=== PATIENT | male | born 1965 ===

== ENCOUNTER 2017-03-05 15:55 | Emergency (ER) | payer BC ==
[2017-03-05 16:07] VITALS: BP 142/78
--- NOTE | 2017-03-05 17:10 | UC ---
General HPI - HPI Summary HPI Summary: TICK EMBEDDED IN RIGHT LOWER ABDOMEN SINCE THIS MORNING. WAS IN [place] YESTERDAY. NO RASHES. NO FEVER. 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 Tonsillectomy, 1981. Umbilical Hernia Repair, 2007 - Family History Known Family History: Negative: Blood Disorder - Social History Occupation: Employed Full-time Lives: With Family Alcohol Use: None Substance Use Type: None Smoking Status (MU): Former Smoker Type: Cigarettes Amount Used/How Often: 1.5PPD Length of Time of Smoking/Using Tobacco: 30+ years When Did the Patient Quit Smoking/Using Tobacco: 2014 Review of Systems Constitutional: Negative Skin: Other - TICK IN RIGHT LOWER ABDOMEN Eyes: Negative ENT: Negative Respiratory: Negative Cardiovascular: Negative Gastrointestinal: Negative Genitourinary: Negative Motor: Negative Neurovascular: Negative Musculoskeletal: Negative Neurological: Negative Psychological: Negative All Other Systems Reviewed And Are Negative: Yes Physical Exam Triage Information Reviewed: Yes Appearance: Well-Appearing, No Pain Distress, Well-Nourished Vital Signs: Initial Vital Signs Temp 97.8 F 03/05/17 16:01 Pulse 70 03/05/17 16:01 Resp 16 03/05/17 16:01 BP 142/78 03/05/17 16:01 Pulse Ox 96 03/05/17 16:01 Vital Signs Reviewed: Yes Eye Exam: Normal ENT Exam: Normal ENT: Positive: Normal ENT inspection, Hearing grossly normal, Pharynx normal, TMs normal Dental Exam: Normal Neck exam: Normal Neck: Positive: Supple, Nontender Respiratory Exam: Normal Respiratory: Positive: Chest non-tender, Lungs clear, Normal breath sounds, No respiratory distress, No accessory muscle use Cardiovascular Exam: Normal Cardiovascular: Positive: RRR, No Murmur, Pulses Normal Abdomen Description: Positive: Nontender, No Organomegaly, Soft, Other: - TICK EMBEDDED IN RIGHT LOWER ABDOMEN Bowel Sounds: Positive: Present Musculoskeletal Exam: Normal Neurological Exam: Normal Psychological Exam: Normal Skin: Positive: Other - TICK EMBEDDED IN RIGHT LOWER ABDOMEN Procedures - Procedure Summary Procedure Summary: TICK REMOVED FROM RIGHT LOWER ABDOMEN USING TICK TWISTER Course/Dx - Differential Dx - Multi-Symptom Differential Diagnoses: Urinary Tract Infection Provider Diagnoses: TICK REMOVAL. TICK BITE PROPHYLAXIS Discharge - Discharge Plan Condition: Stable Disposition: HOME Prescriptions: DOXYcycline CAP(*) [DOXYcycline 100MG CAP(*)] 100 mg PO ONCE #2 cap Patient Education Materials: Tick Bite (ED) Referrals: [facility]ERR[facility] [Outside] No Primary Care Phys,NOPCP [Primary Care Provider] -
== END 2017-03-05 16:32 | disposition home or self-care (01) ==
LOC: UCCORT 15:55
DX: S30.861A Insect bite (nonvenomous) of abdominal wall, initial encounter (principal); W57.XXXA Bitten or stung by nonvenomous insect and other nonvenomous arthropods, initial encounter; Y93.9 Activity, unspecified; Y92.9 Unspecified place or not applicable; Z87.891 Personal history of nicotine dependence
CPT/HCPCS: 99212; G0463

== ENCOUNTER 2018-04-15 15:45 | Emergency (ER) | payer BC ==
[2018-04-15 15:57] VITALS: BP 142/90
--- NOTE | 2018-04-15 16:10 | UC ---
Dental HPI - HPI Summary HPI Summary: Patient is complaining of increasing pain to his right upper back gum next to a bad tooth. He notes the area has become swollen and his glands are swollen and tender. Began about a week ago and is getting worse. Patient states he is able to control his pain with [id number] Motrin. Patient states this happened before and he required an antibiotic. - History of Current Complaint Hx Obtained From: Patient Onset/Duration: Gradual Onset Pain Intensity: 4 Aggravating Factor(s): Nothing Alleviating Factor(s): Nothing <Taty Houston - Last Filed: 04/15/18 16:21> <Wilber Haider - Last Filed: 04/15/18 20:02> - History of Current Complaint Chief Complaint: UCDentalProblem Stated Complaint: DENTAL COMPLAINT Time Seen by Provider: 04/15/18 16:01 - Allergies/Home Medications Allergies/Adverse Reactions: Allergies Allergy/AdvReac Type Severity Reaction Status Date / Time No Known Allergies Allergy Verified 04/15/18 15:55 Home Medications: Home Medications Ibuprofen TAB* [Motrin TAB* 600 MG] 600 mg PO Q6H PRN 04/15/18 [History Confirmed 04/15/18] PMH/Surg Hx/FS Hx/Imm Hx Previously Healthy: Yes - Surgical History Surgical History: Yes Surgery Procedure, Year, and Place: BIlateral Hernia Repair, 1965. Tonsillectomy, 1981. Umbilical Hernia Repair, 2007 - Family History Known Family History: Negative: Blood Disorder - Social History Occupation: Employed Full-time Alcohol Use: Rare Substance Use Type: None Smoking Status (MU): Former Smoker Type: Cigarettes Amount Used/How Often: 1.5PPD Length of Time of Smoking/Using Tobacco: 30+ years When Did the Patient Quit Smoking/Using Tobacco: 2014 - Immunization History Vaccination Up to Date: Yes <Taty Houston - Last Filed: 04/15/18 16:21> Review of Systems Constitutional: Negative Skin: Negative Eyes: Negative ENT: Dental Pain Respiratory: Negative Cardiovascular: Negative Gastrointestinal: Negative Genitourinary: Negative Motor: Negative Neurovascular: Negative Musculoskeletal: Negative Neurological: Negative Psychological: Negative Is Patient Immunocompromised?: No All Other Systems Reviewed And Are Negative: Yes <Taty Houston - Last Filed: 04/15/18 16:21> Physical Exam Triage Information Reviewed: Yes Appearance: Well-Appearing Vital Signs: Initial Vital Signs Temp 98.1 F 04/15/18 15:53 Pulse 69 04/15/18 15:53 Resp 16 04/15/18 15:53 BP 142/90 04/15/18 15:53 Pulse Ox 98 04/15/18 15:53 Eyes: Positive: Conjunctiva Clear ENT: Positive: Pharynx normal, TMs normal. Negative: Nasal congestion, Nasal drainage Dental: Positive: Other: - Right upper posterior molar appears to have some decay. The tooth is not tender. The surrounding gum is mildly swollen and tender but not fluctuant. Neck: Positive: Supple, No Lymphadenopathy, Tenderness @ - Right submandibular and upper anterior cervical chain lymph node tenderness I cannot appreciate any enlargement Respiratory: Positive: Lungs clear, Normal breath sounds Cardiovascular: Positive: RRR, No Murmur Abdomen Description: Positive: Nontender, No Organomegaly, Soft Bowel Sounds: Positive: Present Musculoskeletal: Positive: ROM Intact Neurological: Positive: Alert Psychological: Positive: Age Appropriate Behavior Skin Exam: Normal <Taty Houston - Last Filed: 04/15/18 16:21> Vital Signs: Initial Vital Signs Temp 98.1 F 04/15/18 15:53 Pulse 69 04/15/18 15:53 Resp 16 04/15/18 15:53 BP 142/90 04/15/18 15:53 Pulse Ox 98 04/15/18 15:53 <Wilber Haider - Last Filed: 04/15/18 20:02> Dental Complaint Course/Dx - Course Course Of Treatment: Pain and swelling isolates to the area of the right upper gum adjacent to a bad tooth. The parotid gland is not tender or swollen. There is no area of fluctuants to open and drain. Patient is declining prescription pain medication citing [id number] Motrin works. We'll treat him with an antibiotic and provide him with a list of local dentists for follow- up. - Differential Dx/Diagnosis Provider Diagnoses: R upper gum infection <Taty Houston - Last Filed: 04/15/18 16:21> Discharge - Sign-Out/Discharge Documenting (check all that apply): Discharge/Admit/Transfer - Billing Disposition and Condition Condition: STABLE Disposition: Home <Taty Houston - Last Filed: 04/15/18 16:21> - Billing Disposition and Condition Condition: STABLE Disposition: Home <Wilber Haider - Last Filed: 04/15/18 20:02> - Discharge Plan Condition: Stable Disposition: HOME Prescriptions: Amoxicillin PO (*) [Amoxicillin 875 MG (*)] 875 mg PO BID #20 tab Patient Education Materials: Dental Abscess (ED) Referrals: Diamond Castro PA [Primary Care Provider] - If Needed Additional Instructions: FOLLOW UP WITH DENTAL-NEXT AVAILABLE APPOINTMENT-LIST GIVEN Per institutional requirements, I have reviewed the chart, however, I was not consulted specifically or made aware of this patient by the above midlevel provider. I did not personally evaluate, interact with , or disposition this patient.
== END 2018-04-15 16:24 | disposition home or self-care (01) ==
LOC: UCCORT 15:45
DX: K06.9 Disorder of gingiva and edentulous alveolar ridge, unspecified (principal); Z87.891 Personal history of nicotine dependence
CPT/HCPCS: 99212; G0463